=== PATIENT | male | born 1970 | race Caucasian/White ===

== ENCOUNTER 2018-11-23 12:17 | Emergency (ER) | payer SELFPAY | END 2018-11-23 18:26 | disposition left against medical advice (07) | LOC: E/R 12:17 | DX: Z53.21 Procedure and treatment not carried out due to patient leaving prior to being seen by health care provider (principal) ==

== ENCOUNTER 2018-11-26 08:53 | Emergency (ER) | payer SELFPAY | END 2018-11-26 10:16 | disposition left against medical advice (07) | LOC: FTE 08:53 | DX: Z53.21 Procedure and treatment not carried out due to patient leaving prior to being seen by health care provider (principal) ==

== ENCOUNTER 2018-12-04 22:20 | Emergency (ER) | payer SELFPAY | END 2018-12-04 23:09 | disposition left against medical advice (07) | LOC: FTE 22:20 | DX: Z53.21 Procedure and treatment not carried out due to patient leaving prior to being seen by health care provider (principal) ==

== ENCOUNTER 2018-12-14 01:26 | Emergency (ER) | payer SELFPAY | END 2018-12-14 01:41 | disposition left against medical advice (07) | LOC: E/R 01:26 | DX: Z53.21 Procedure and treatment not carried out due to patient leaving prior to being seen by health care provider (principal) ==

== ENCOUNTER 2019-01-03 22:48 | Emergency (ER) | payer SELFPAY | END 2019-01-03 22:50 | disposition left against medical advice (07) | LOC: E/R 22:48 | DX: Z53.21 Procedure and treatment not carried out due to patient leaving prior to being seen by health care provider (principal) ==

== ENCOUNTER 2019-01-07 18:01 | Emergency (ER) | payer SELFPAY | END 2019-01-07 18:45 | disposition left against medical advice (07) | LOC: E/R 18:45 | DX: Z53.21 Procedure and treatment not carried out due to patient leaving prior to being seen by health care provider (principal) ==

== ENCOUNTER 2019-01-11 15:02 | Emergency (ER) | payer MEDICARE | END 2019-01-11 17:20 | disposition home or self-care (01) | LOC: FTE 17:20 | DX: Z11.3 Encounter for screening for infections with a predominantly sexual mode of transmission (principal); F17.210 Nicotine dependence, cigarettes, uncomplicated; Z00.00 Encounter for general adult medical examination without abnormal findings | CPT/HCPCS: 87591; 99283 ==

== ENCOUNTER 2019-01-12 11:17 | Emergency (ER) | payer MEDICARE | END 2019-01-12 14:02 | disposition left against medical advice (07) | LOC: E/R 14:02 → FTE 11:17 → E/R 14:02 | DX: Z00.00 Encounter for general adult medical examination without abnormal findings (principal); F17.210 Nicotine dependence, cigarettes, uncomplicated | CPT/HCPCS: 99282 ==

== ENCOUNTER 2019-01-15 12:11 | Emergency (ER) | payer MEDICARE | END 2019-01-15 12:35 | disposition left against medical advice (07) | LOC: E/R 12:11 | DX: Z00.00 Encounter for general adult medical examination without abnormal findings (principal); F17.210 Nicotine dependence, cigarettes, uncomplicated | CPT/HCPCS: 99282 ==

== ENCOUNTER 2019-01-17 17:15 | Emergency (ER) | payer MEDICARE | END 2019-01-17 18:26 | disposition home or self-care (01) | LOC: E/R 17:15 | DX: Z00.00 Encounter for general adult medical examination without abnormal findings (principal); F17.210 Nicotine dependence, cigarettes, uncomplicated | CPT/HCPCS: 99282 ==